=== PATIENT | female | born 1985 | race Asian ===

== ENCOUNTER 2025-04-19 02:44 | Emergency (ER) | payer OTHER ==
[~2025-04-19] VITALS: Ht 160 cm; Wt 55.0 kg
[2025-04-19 02:59] VITALS: O2SAT 99
[2025-04-19] MEDS: METOCLOPRAMIDE HCL 10MG TABLET PO ONE (04:05)
[2025-04-19] MEDS: ACETAMINOPHEN 500MG TABLET PO ONE (04:05)
[2025-04-19] MEDS ORDERED: NAPR-1176 MT (04:47)
[2025-04-19] MEDS: LIDOCAINE 5% PATCH TOP SCH (05:05)
[2025-04-19 05:08] VITALS: BP 137/84; PULSE 65; RESP 14; TEMP 36.6; O2SAT 100
== END 2025-04-19 05:15 | disposition home or self-care (01) ==
LOC: ER 02:44
DX: S00.01XA Abrasion of scalp, initial encounter (principal); Z79.1 Long term (current) use of non-steroidal anti-inflammatories (NSAID); W18.2XXA Fall in (into) shower or empty bathtub, initial encounter; Y93.E1 Activity, personal bathing and showering; Y92.89 Other specified places as the place of occurrence of the external cause; Y99.8 Other external cause status
CPT/HCPCS: 99284; 70450; 72125; J8597